=== PATIENT | male | born 1995 | race African-American/Black ===

== ENCOUNTER 2021-06-17 18:00 | Emergency (ER) | payer MEDICAID, OTHER ==
[~2021-06-17] VITALS: Ht 170.2 cm; Wt 46.8 kg
[2021-06-17 18:03] VITALS: BP 114/68
== END 2021-06-17 18:28 | disposition left against medical advice (07) ==
LOC: ER 18:00
DX: R10.9 Unspecified abdominal pain (principal); R19.7 Diarrhea, unspecified; Z53.21 Procedure and treatment not carried out due to patient leaving prior to being seen by health care provider